=== PATIENT | male | born 1965 | race Caucasian/White ===

== ENCOUNTER 2018-01-18 07:33 | Day surgery (SDC) | payer BC ==
[2018-01-17 17:27] VITALS: BMI 27.6
--- NOTE | 2018-01-18 08:27 | HP ---
[facility] - Chief Complaint Chief Complaint: right hand pain, numbness History of Present Illness: right CTS History Source: Patient Limitations to Obtaining History: No Limitations - Past Medical History Allergies/Adverse Reactions: Allergies Allergy/AdvReac Type Severity Reaction Status Date / Time No Known Allergies Allergy Verified 01/18/18 08:01 - Current Medications Current Medications: Home Medications Medication Instructions Recorded Amlodipine Besylate 5 mg PO DAILY 01/17/18 Satellite Physical Exam - Physical Examination Vital Signs: Vital Signs Period Temp Pulse Resp BP Sys/Thompson Pulse Ox Last 24 Hr 97.8 F-97.8 F 64-64 20-20 138-138/88-88 100 General Appearance: Well Nourished ENT: Clear Lung: Clear to auscultation Heart: Regular rate & rhythm Breasts: Soft Abdomen: Soft Extremities: No edema Satellite Impression/Plan - Impression/Plan Impression: right CTS Operative Procedure: right CTR Date to be Performed: 01/18/18
[2018-01-18] MEDS ORDERED: ONDANSETRON 4 MG/2 ML VIAL IVPUSH PRN (08:36)
[2018-01-18] MEDS ORDERED: oxyCODONE HCL 5 MG TABLET PO PRN (08:36)
[2018-01-18] MEDS ORDERED: LACTATED RINGERS SOLUTION 1,000 ML IV SCH (08:45)
[2018-01-18] MEDS ORDERED: LIDOCAINE HCL/PF 2% SDV 5ML VIAL ONE (09:21)
[2018-01-18] MEDS ORDERED: DEXAMETHASONE SOD PHOSPHATE 4 MG/1 ML VIAL ONE (09:21)
[2018-01-18] MEDS ORDERED: KETOROLAC TROMETHAMINE 30 MG/1 ML VIAL ONE (09:21)
[2018-01-18] MEDS ORDERED: ceFAZolin SODIUM 1 GM VIAL ONE (09:21)
[2018-01-18] MEDS ORDERED: SODIUM CHLORIDE 0.9% P/F 10 ML VIAL IJ ONE (09:21)
[2018-01-18] MEDS ORDERED: MIDAZOLAM HCL 2 MG/2 ML SINGLE DOSE VIAL ONE (09:21)
[2018-01-18] MEDS ORDERED: BUPIVACAINE HCL/PF 0.5% (5MG/ML) 10 ML VIAL ONE (09:31)
[2018-01-18] MEDS ORDERED: LIDOCAINE HCL 1%, 10 MG/ML (20ML VIAL) ONE (09:31)
[2018-01-18] MEDS ORDERED: LIDOCAINE HCL 1%, 10 MG/ML (50 mL VIAL) IJ ONE (09:45)
[2018-01-18] MEDS ORDERED: ceFAZolin SODIUM 1 GM VIAL IVPB ONE (09:45)
[2018-01-18] MEDS ORDERED: BUPIVACAINE HCL/PF 0.5% (5MG/ML) 10 ML VIAL IJ ONE (09:45)
[2018-01-18] MEDS ORDERED: PROPOFOL 20 ML ONE (10:08)
--- NOTE | 2018-01-18 10:31 | OP ---
Operative Note - Note: Operative Date: 01/18/18 Pre-Operative Diagnosis: right CTS Operation: right CTR, tenosynovectomy Post-Operative Diagnosis: Same as Pre-op Surgeon: Ramon Perez Anesthesiologist/TIMBER KILLER: Jaylan Freed Anesthesia: Local, MAC Specimens Removed: tenosynovium Estimated Blood Loss (mls): 0 Drains, Volume Out (mls): 0 Fluid Volume Replaced (mls): 500 Operative Report Dictated: Yes
--- NOTE | 2018-01-18 12:47 | SPEC ---
DATE OF OPERATION: 01/18/2018 PREOPERATIVE DIAGNOSIS: Right carpal tunnel syndrome. POSTOPERATIVE DIAGNOSIS: Right carpal tunnel syndrome. PROCEDURE: Right carpal tunnel release and tenosynovectomy. SURGEON: Ramon Perez MD ASSISTANTS: None. DIRECTOR OF VOLUNTEER SERVICES: Jaylan Freed CRNA ANESTHESIA: MAC anesthesia, local injection of 20 mL of 0.5% Marcaine and 1% lidocaine mixed. DRAINS: None. COMPLICATIONS: None. SPECIMENS: Tenosynovium, right wrist. BLOOD LOSS: None. BLOOD GIVEN: None. FLUID REPLACEMENT: 500 mL. INDICATIONS: This patient is a 52-year-old male with a preoperative diagnosis of a right carpal tunnel syndrome. After understanding the potential risks, complications, alternatives, and benefits of surgical versus nonsurgical treatment, the patient elected to undergo this procedure. DESCRIPTION OF PROCEDURE: The patient was brought to the operating room, peripheral IV placed and intravenous sedation was given. One gram of intravenous Ancef was given. MAC anesthesia was induced. A tourniquet was applied to the right upper arm and the right upper extremity was prepped and draped in sterile fashion. The entire case was done under 3.8 loupe magnification. A marking pen was utilized to ben out a longitudinal incision in an already existing skin crease. Twenty mL of 0.5% Marcaine mixed with 1% Lidocaine was injected in and around the surgical incision. The right upper extremity was elevated, exsanguinated with an Esmarch bandage and the tourniquet inflated to 250 mmHg. A No. 15 scalpel blade was utilized to cut down through the skin. Subcutaneous hemostasis was achieved with the bipolar cautery. Dissection was done through the superficial palmar fascia. Self-retaining retractors were placed into the wound. Under direct visualization, the transverse carpal ligament was transected with a No. 15 scalpel blade, exposing the median nerve and the contents of the carpal tunnel. The distal and proximal extents of the release were completed with a Littler scissor and checked with irrigation and my small finger. They were seen to be complete. Limited dissection was done on the radial side of the median nerve and more extensive dissection was done on the ulnar side of the median nerve. The patients nerve was seen to be quite compressed by epineurium and therefore a limited epineurotomy was performed. A Ragnell retractor was used to gently retract the median nerve in a radial direction. The patient had a lot of tenosynovitis and therefore a tenosynovectomy was performed off all 9 flexor tendons. This was passed off the field as tenosynovium right wrist. The floor of the carpal tunnel was checked. There were no abnormal masses or ganglion cysts. The area was copiously irrigated and washed out and closure begun. Undyed 4-0 Vicryl was used to close the deep dermal layer. Final skin reapproximation was done with horizontal mattress 4-0 nylon sutures. The area was then washed and dried, covered with Xeroform, 4x4s, fluffs between the fingers, Webril and a 4-inch plaster roll was utilized to make a volar splint, which was then wrapped with Brooks and Coban. The tourniquet was taken down after a total tourniquet time of minutes. There were no complications during the case. The patient tolerated the procedure well and was brought to the ambulatory recovery room in stable condition. Cassia [id number]
[2018-01-18] MEDS ORDERED: oxyCODONE HCL 5 MG TABLET PO ONE (13:00)
[2018-01-18] MEDS ORDERED: oxyCODONE HCL 5 MG TABLET ONE (13:04)
[2018-01-18 13:32] VITALS: TEMP 97
[2018-01-18 13:53] VITALS: BP 129/82; PULSE 77
--- NOTE | 2018-01-19 17:59 | PATH ---
Surgical Pathology Report Patient Name: MAYA URBINA [facility]. Rec. #: [id number] /Age/Gender: 1965 (Age: 52) / M Account: [id number] Location: [facility] SURGICAL Taken: 01/18/2018 Received: 01/18/2018 Reported: 01/19/2018 Physicians: Ramon Perez M.D. Specimen(s) Received TENOSYNOVIUM Clinical History Right carpal tunnel syndrome Final Diagnosis TENOSYNOVIUM, RIGHT, CARPAL TUNNEL RELEASE: BENIGN DENSE FIBROCONNECTIVE TISSUE. Electronically Signed Glenys Elmore M.D. Gross Description Received in formalin labeled "tenosynovium" are multiple irregular fragments of white-gardiner soft tissue measuring 2 x 1 x 0.5 cm in aggregate. The entire specimen is submitted in one cassette. MLSZ/01/18/2018 sanml/01/18/2018
== END 2018-01-18 13:58 | disposition home or self-care (01) ==
LOC: JASU-SURG 07:33
PROVIDERS: ATTEND Orthopaedic Surgery
PROC: 01N50ZZ Release Median Nerve, Open Approach (ICD-10-PCS; principal; 2018-01-18 09:00)
DX: G56.01 Carpal tunnel syndrome, right upper limb (principal)
CPT/HCPCS: 88304-TC; 94760